=== PATIENT | male | born 2000 | race Caucasian/White ===

== ENCOUNTER 2021-09-05 23:08 | Emergency (ER) | payer OTHER ==
[~2021-09-05] VITALS: Ht 182.9 cm; Wt 159.6 kg
[2021-09-05] MEDS: CYCLOBENZAPRINE 10 MG TABLET. PO ONE (23:45)
[2021-09-05] MEDS ORDERED: CYCL10TA19 PO (23:56)
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
[2021-09-06 00:02] VITALS: BP 150/89
[2021-09-06] MEDS: IBUPROFEN 600 MG TABLET. PO ONE (00:04)
== END 2021-09-06 00:09 | disposition home or self-care (01) ==
LOC: ER 23:08
DX: M25.571 Pain in right ankle and joints of right foot (principal); M54.6 Pain in thoracic spine; V89.2XXA Person injured in unspecified motor-vehicle accident, traffic, initial encounter; Y93.I9 Activity, other involving external motion; Y92.89 Other specified places as the place of occurrence of the external cause; Y99.8 Other external cause status
CPT/HCPCS: 99283